=== PATIENT | female | born 1975 | race Caucasian/White ===

== ENCOUNTER 2018-06-18 11:45 | Emergency (ER) | payer OTHER ==
[~2018-06-18] VITALS: Ht 165.1 cm; Wt 69.9 kg
[2018-06-18 13:48] VITALS: BP 148/84
== END 2018-06-18 14:30 | disposition home or self-care (01) ==
LOC: ER 11:59
DX: R05 Cough (principal); J00 Acute nasopharyngitis [common cold]; J45.909 Unspecified asthma, uncomplicated; Z88.0 Allergy status to penicillin; Z88.2 Allergy status to sulfonamides; Z88.1 Allergy status to other antibiotic agents; Z88.8 Allergy status to other drugs, medicaments and biological substances